=== PATIENT | female | born 1995 | race Hispanic/Latino ===

== ENCOUNTER 2016-09-09 23:14 | Emergency (ER) | payer OTHER ==
[2016-09-09 23:47] VITALS: BMI 38.6
[2016-09-09 23:50] VITALS: RESP 18; TEMP 98
--- NOTE | 2016-09-10 00:48 | ED PDOC ---
Arrival/HPI <Waldemar Degroot - Last Filed: 09/10/16 03:18> - General Historian: Patient - History of Present Illness Time/Duration: Other (2 days) Quality: Burning Context: Home <Brenda Mullen - Last Filed: 09/12/16 11:48> - General Chief Complaint: Abdominal Pain Time Seen by Provider: 09/10/16 00:30 - History of Present Illness Narrative History of Present Illness (Text): 09/10/16 00:43 This 20 yo female with pmh GERD, presents to this ED c/o epigastric pain, radiates to RUQ x 2 days. Patient has had similar symptoms in the past. Denies sob, cp, vomiting, diarrhea, pelvic pain, urinary symptoms, or urinary symptoms. (Brenda Mullen) Past Medical History - Provider Review Nursing Documentation Reviewed: Yes - Infectious Disease Hx of Infectious Diseases: None - Cardiac Hx Cardiac Disorders: No - Pulmonary Hx Respiratory Disorders: No - Neurological Hx Neurological Disorder: No - HEENT Hx HEENT Disorder: No - Renal Hx Renal Disorder: No - Endocrine/Metabolic Hx Endocrine Disorders: No - Hematological/Oncological Hx Blood Disorders: No - Integumentary Hx Dermatological Disorder: No - Musculoskeletal/Rheumatological Hx Musculoskeletal Disorders: No - Gastrointestinal Hx Gastrointestinal Disorders: No - Genitourinary/Gynecological Other/Comment: PCOS - Psychiatric Hx Bipolar Disorder: Yes Hx Substance Use: No - Surgical History Other/Comment: D&C, hysteroscopy - Anesthesia Hx Anesthesia: Yes Hx Anesthesia Reactions: No Hx Malignant Hyperthermia: No <Brenda Mullen - Last Filed: 09/12/16 11:48> Family/Social History - Physician Review Nursing Documentation Reviewed: Yes Family/Social History: No Known Family HX Smoking Status: Never Smoked Hx Alcohol Use: No Hx Substance Use: No <Brenda Mullen P - Last Filed: 09/12/16 11:48> Allergies/Home Meds <Waldemar Degroot - Last Filed: 09/10/16 03:18> <Brenda Mullen - Last Filed: 09/12/16 11:48> Allergies/Adverse Reactions: Allergies human papillomavirus vaccine, quadr [From Gardasil (PF)] Allergy (Verified 03/01 20:15) FATIGUE Review of Systems - Review of Systems Constitutional: Normal. absent: Fatigue, Weight Change, Fevers Eyes: Normal ENT: Normal Respiratory: Normal Cardiovascular: Normal Gastrointestinal: Abdominal Pain, Other (see HPI) Genitourinary Female: Normal Musculoskeletal: Normal Skin: Normal Neurological: Normal Endocrine: Normal Hemo/Lymphatic: Normal Psychiatric: Normal <Brenda Mullen - Last Filed: 09/12/16 11:48> Physical Exam Temperature: Afebrile Blood Pressure: Normal Pulse: Regular Respiratory Rate: Normal Appearance: Positive for: Well-Appearing, Non-Toxic, Comfortable Pain Distress: None Mental Status: Positive for: Alert and Oriented X 3 - Systems Exam Head: Present: Atraumatic, Normocephalic Pupils: Present: PERRL Extroacular Muscles: Present: EOMI Conjunctiva: Present: Normal Mouth: Present: Moist Mucous Membranes Neck: Present: Normal Range of Motion Respiratory/Chest: Present: Clear to Auscultation, Good Air Exchange. No: Respiratory Distress, Accessory Muscle Use Cardiovascular: Present: Regular Rate and Rhythm, Normal S1, S2. No: Murmurs Abdomen: Present: Normal Bowel Sounds. No: Tenderness, Distention, Peritoneal Signs, Rebound, Guarding, McBurney's Point Tender, Rovsing's Sign Present Back: Present: Normal Inspection Upper Extremity: Present: Normal Inspection. No: Cyanosis, Edema Lower Extremity: Present: Normal Inspection. No: Edema Neurological: Present: GCS=15, CN II-XII Intact, Speech Normal Skin: Present: Warm, Dry, Normal Color. No: Rashes Psychiatric: Present: Alert, Oriented x 3, Normal Insight, Normal Concentration <Brenda Mullen - Last Filed: 09/12/16 11:48> Vital Signs Temp Pulse Resp BP Pulse Ox 09/10/16 03:19 65 18 97/50 L 100 09/09/16 23:49 98.0 F 80 18 108/64 98 Medical Decision Making <Waldemar Degroot - Last Filed: 09/10/16 03:18> <Brenda Mullen - Last Filed: 09/12/16 11:48> ED Course and Treatment: 09/10/16 03:12 US Abdomen: Liver: The liver is within normal limits measuring 15.3 cm with no focal defects. There is hepatopetal portal flow. No intrahepatic bile duct dilation. Gallbladder: The gallbladder is contracted with no stones and no wall thickening measuring 3 mm. There is a negative sono Hernandez's sign. Common bile duct: The common bile duct measures 3 mm. No stones. No dilation. Pancreas: The pancreas is grossly normal. Kidneys: The right kidney is normal measuring 9.8 cm. The left kidney is normal measuring 9.8 cm. No stones. No hydronephrosis. Spleen: The spleen is upper normal measuring 11.5 cm. Aorta: The aorta is of normal size. No aneurysm. Inferior vena cava: The IVC is normal. IMPRESSION: Negative abdominal sonogram. The gallbladder is contracted with no stones. ( Waldemar Degroot) - Lab Interpretations Microbiology Results: Microbiology Results 09/10/16 02:29 Urine,Clean Catch Urine Culture - Final No Growth (<1,000 CFU/ML) Lab Results: 09/10/16 01:00 09/10/16 01:00 Lab Results 09/10/16 02:29: Urine Color Yellow, Urine Appearance Sl cloudy, Urine pH 6.5, Ur Specific B[place]roft 1.025, Urine Protein Trace H, Urine Glucose (UA) Negative, Urine Ketones Negative, Urine Blood Negative, Urine Nitrate Negative, Urine Bilirubin Negative, Urine Urobilinogen 0.2, Ur Leukocyte Esterase Small H, Urine RBC 0 - 2, Urine WBC 5 - 10, Ur Epithelial Cells 1 - 3, Urine Bacteria Mod , Urine HCG, Qual Negative 09/10/16 01:00: Sodium 141, Potassium 3.9, Chloride 107, Carbon Dioxide 25, Anion Gap 13, BUN 13, Creatinine 0.7, Est GFR ( Amer) > 60, Est GFR (Non- Af Amer) > 60, Random Glucose 102, Calcium 9.3, Total Bilirubin 0.2, AST 19, ALT 25, Alkaline Phosphatase 81, Total Protein 7.3, Albumin 4.0, Globulin 3.2, Albumin/Globulin Ratio 1.3, Lipase 67 09/10/16 01:00: WBC 6.9 D, RBC 4.43, Hgb 10.6 L, Hct 33.9 L, MCV 76.5 L, MCH 23.9 L, MCHC 31.3, RDW 15.9 H, Plt Count 308, MPV 10.0, Gran % 52.4, Lymph % ( Auto) 36.3 H, Dubois % (Auto) 9.0 H, Eos % (Auto) 1.9, Baso % (Auto) 0.4, Gran # 3.61, Lymph # 2.5, Dubois # 0.6, Eos # 0.1, Baso # 0.03 - RAD Interpretation Radiology Orders: 09/10/16 00:41 ABDOMEN COMPLETE [US] Stat - Medication Orders Current Medication Orders: Discontinued Medications Al Hydrox/Mg Hydrox/Simethicone (Maalox Plus 30 Ml) 30 ml PO STAT STA Stop: 09/10/16 01:34 Last Admin: 09/10/16 02:35 Dose: 30 ml Belladonna/Phenobarbital ( Elixir) 5 ml PO STAT STA Stop: 09/10/16 01:35 Last Admin: 09/10/16 02:35 Dose: 5 ml Lidocaine HCl (Lidocaine 2% Viscous) 5 ml PO STAT STA Stop: 09/10/16 01:35 Last Admin: 09/10/16 02:35 Dose: 5 ml Ondansetron HCl (Zofran Inj) 4 mg IVP STAT STA Stop: 09/10/16 01:34 Last Admin: 09/10/16 02:35 Dose: 4 mg - PA / [employer] / Resident Statement / has reviewed & agrees with the documentation as recorded. / has examined the patient and agrees with the treatment plan. <Waldemar Degroot - Last Filed: 09/10/16 03:18> Disposition/Present on Arrival - Present on Arrival Any Indicators Present on Arrival: No History of DVT/PE: No History of Uncontrolled Diabetes: No Urinary Catheter: No History of Decub. Ulcer: No History Surgical Site Infection Following: None - Disposition Have Diagnosis and Disposition been Completed?: Yes Disposition Time: 03:18 Patient Plan: Discharge <Waldemar Degroot - Last Filed: 09/10/16 03:18> - Present on Arrival History of DVT/PE: No History of Uncontrolled Diabetes: No Urinary Catheter: No History of Decub. Ulcer: No History Surgical Site Infection Following: None - Disposition Have Diagnosis and Disposition been Completed?: Yes <Brenda Mullen - Last Filed: 09/12/16 11:48> - Disposition Diagnosis: Gastritis Disposition: HOME/ ROUTINE Condition: GOOD Discharge Instructions (ExitCare): Gastritis (ED) Additional Instructions: Take meds as prescribed/bland diet next few days/follow up with your doctor this week Prescriptions: Pantoprazole [Protonix] 40 mg PO DAILY #10 ect Ondansetron [Zofran Odt] 4 mg PO Q8 PRN #9 odt PRN Reason: Nausea/Vomiting
[2016-09-10 01:19] LABS: ADD MANUAL DIFF? NO
[2016-09-10 01:22] LABS: BASO # 0.03 K/mm3 (0.0-2.0); BASO % 0.4 % (0.0-3.0); EOS # 0.1 (0.0-0.7); EOS % 1.9 % (1.5-5.0); GRAN # 3.61 (1.4-6.5); GRAN % 52.4 % (50.0-68.0); HEMATOCRIT 33.9 % (36.0-48.0); LYMPH # 2.5 (1.2-3.4); LYMPH % 36.3 % (22.0-35.0); MEAN CELL VOLUME 76.5 fL (80.0-105.0); MEAN CORPUSCULAR HEMOGLOBIN 23.9 pg (25.0-35.0); MEAN CORPUSCULAR HGB CONC 31.3 g/dl (31.0-37.0); MONO # 0.6 (0.1-0.6); PLATELET COUNT 308 10^3/uL (120.0-450.0); RED CELL DISTRIBUTION WIDTH 15.9 % (11.5-14.5); WHITE BLOOD COUNT 6.9 10^3/ul (4.5-11.0)
[2016-09-10] MEDS ORDERED: Alum-Mag Hydrox-Simethicone Susp (30 mL) PO STA (01:33)
[2016-09-10] MEDS ORDERED: Atrop/Hyosc/Scopal/PB Elixir (120 ml) PO STA (01:34)
[2016-09-10 01:46] LABS: ALB/GLOB RATIO 1.3 (1.1-1.8); ALKALINE PHOSPHATASE 81 U/L (38-133); ALT/SGPT 25 U/L (7-56); AST/SGOT 19 U/L (15-39); BILIRUBIN,TOTAL 0.2 mg/dL (0.2-1.3); BLOOD UREA NITROGEN 13 mg/dL (7-21); CALCIUM 9.3 mg/dL (8.4-10.5); CARBON DIOXIDE 25 mmol/L (21-33); CHLORIDE 107 mmol/L (98-107); GFR AFRICAN-AMERICAN > 60; GLUCOSE,RANDOM 102 mg/dL (70-110); LIPASE 67 U/L (23-300); POTASSIUM 3.9 mmol/L (3.6-5.0); SODIUM 141 mmol/L (132-148); TOTAL PROTEIN 7.3 g/dL (5.8-8.3)
[2016-09-10 02:52] LABS: PH,URINE 6.5 (4.7-8.0); URINE BILIRUBIN NEGATIVE (NEGATIVE); URINE BLOOD NEGATIVE (NEGATIVE); URINE GLUCOSE (UA) NEGATIVE (NEGATIVE); URINE KETONE NEGATIVE (NEGATIVE); URINE LEUKOCYTE ESTERASE SMALL Leu/uL (NEGATIVE); URINE PROTEIN TRACE mg/dL (<30 mg/dL); URINE UROBILINOGEN 0.2 E.U./dL (<1 E.U./dL)
[2016-09-10 02:57] LABS: URINE APPEARANCE SL CLOUDY (CLEAR); URINE COLOR YELLOW (YELLOW)
[2016-09-10 03:07] LABS: URINE RBC 0 - 2 /hpf (0-2)
[2016-09-10 03:08] LABS: URINE BACTERIA MOD (NEG)
[2016-09-10 03:20] VITALS: BP 97/50; PULSE 65; O2SAT 100
--- NOTE | 2016-09-10 10:02 | US ---
HISTORY: RUQ pain COMPARISON: None. TECHNIQUE: Grayscale imaging was performed. FINDINGS: LIVER: Measures 15.3 cm. Normal echogenicity of the liver parenchyma. No mass. No intrahepatic bile duct dilatation. GALLBLADDER: The gallbladder is contracted. No gallstones. The sonographic Hernandez's sign is negative. COMMON BILE DUCT: Measures 3.0 mm. No stones. No dilatation. PANCREAS: Unremarkable as visualized. No mass. No ductal dilatation. RIGHT KIDNEY: Measures 9.8cm. Normal echogenicity. No calculus, mass, or hydronephrosis. LEFT KIDNEY: Measures 9.8cm. Normal echogenicity. No calculus, mass, or hydronephrosis. SPLEEN: Normal in size and contour. No mass. AORTA: No aneurysmal dilatation. IVC: Unremarkable. OTHER FINDINGS: None. IMPRESSION: Contracted gallbladder limiting evaluation. Otherwise, no acute findings.
== END 2016-09-10 03:22 | disposition home or self-care (01) ==
LOC: ED 23:14
DX: K29.70 Gastritis, unspecified, without bleeding (principal)
CPT/HCPCS: 76700; 80053; 81001; 83690; 84703; 85025; 87086; 96374; 99284; J2405